=== PATIENT | male | born 1995 | race Caucasian/White ===

== ENCOUNTER 2017-05-31 17:29 | Emergency (ER) | payer OTHER ==
[2017-05-31 17:32] VITALS: BMI 26.6
[2017-05-31 17:36] VITALS: BP 126/77; PULSE 71; RESP 18; TEMP 98.3; O2SAT 96
[2017-05-31 19:01] LABS: BASO # 0.02 K/mm3 (0.0-2.0); BASO % 0.3 % (0.0-3.0); EOS # 0.2 (0.0-0.7); EOS % 2.5 % (1.5-5.0); GRAN # 2.98 (1.4-6.5); GRAN % 49.2 % (50.0-68.0); HEMOGLOBIN 13.8 g/dL (14.0-18.0); LYMPH # 2.4 (1.2-3.4); LYMPH % 40.1 % (22.0-35.0); MEAN CELL VOLUME 80.9 fl (80.0-105.0); MEAN CORPUSCULAR HEMOGLOBIN 26.8 pg (25.0-35.0); MEAN CORPUSCULAR HGB CONC 33.2 g/dl (31.0-37.0); MEAN PLATELET VOLUME 10.1 fl (7.0-11.0); MONO # 0.5 (0.1-0.6); MONO % 7.9 % (1.0-6.0); RBC 5.14 10^6/uL (3.5-6.1); RED CELL DISTRIBUTION WIDTH 14.6 % (11.5-14.5); WHITE BLOOD COUNT 6.1 10^3/ul (4.5-11.0)
[2017-05-31 19:05] LABS: ALB/GLOB RATIO 1.5 (1.1-1.8); ALBUMIN 4.4 g/dL (3.0-4.8); ALT/SGPT 62 U/L (7-56); AST/SGOT 52 U/L (17-59); BLOOD UREA NITROGEN 18 mg/dL (7-21); CALCIUM 10.1 mg/dL (8.4-10.5); GFR AFRICAN-AMERICAN > 60; GFR NON-AFRICAN AMERICAN > 60
[2017-05-31 20:08] LABS: BARBITURATES, UR NEGATIVE (NEGATIVE); BENZODIAZEPINES, UR NEGATIVE (NEGATIVE); OPIATES, UR NEGATIVE (NEGATIVE); PHENCYCLIDINE, UR NEGATIVE (NEGATIVE)
--- NOTE | 2017-05-31 20:38 | ED PDOC ---
Arrival/HPI - General Chief Complaint: Dizziness/Lightheaded Time Seen by Provider: 05/31/17 17:42 Historian: Patient - History of Present Illness Narrative History of Present Illness (Text): 05/31/17 17:53 21 year old male, with no significant past medical history, presents to the Emergency department complaining of generalized weakness, occasional headache, fatigue and "off-balance" for past several weeks. Patient additionally informs feeling cross-eyed. Patient current denies any headache, fever, chills, nausea, vomiting, diarrhea, abdominal pain, chest pain, cough, shortness of breath or any other complaints. Time/Duration: > week Symptom Onset: Gradual Symptom Course: Unchanged Activities at Onset: Light Context: Home Past Medical History - Provider Review Nursing Documentation Reviewed: Yes - Past History Past History: No Previous - Infectious Disease Hx of Infectious Diseases: None - Tetanus Immunization Tetanus Immunization: Up to Date - Psychiatric Hx Depression: No Hx Emotional Abuse: No Hx Physical Abuse: No Hx Substance Use: No - Surgical History Other/Comment: mouth surgery. spermatocele - Anesthesia Hx Anesthesia: Yes Hx Anesthesia Reactions: No Hx Malignant Hyperthermia: No - Suicidal Assessment Feels Threatened In Home Enviroment: No Family/Social History - Physician Review Nursing Documentation Reviewed: Yes Family/Social History: No Known Family HX Smoking Status: Never Smoked Hx Alcohol Use: Yes Frequency of alcohol use: Socially Hx Substance Use: No Hx Substance Use Treatment: No Allergies/Home Meds Allergies/Adverse Reactions: Allergies No Known Allergies Allergy (Verified 04/30/13 21:55) Home Medications: Home Meds Medication Instructions Recorded Confirmed No Known Home Med 05/31/17 05/31/17 Review of Systems - Physician Review All systems were reviewed & negative as marked: Yes - Review of Systems Constitutional: Fatigue. absent: Fevers Eyes: Other (feeling cross-eyed) ENT: Normal Respiratory: Normal. absent: SOB, Cough Cardiovascular: Normal. absent: Chest Pain Gastrointestinal: Normal. absent: Abdominal Pain, Diarrhea, Nausea, Vomiting Genitourinary Male: Normal Musculoskeletal: Normal Skin: Normal Neurological: Dizziness Endocrine: Normal Hemo/Lymphatic: Normal Psychiatric: Normal Physical Exam Vital Signs Reviewed: Yes Vital Signs Temp Pulse Resp BP Pulse Ox 05/31/17 17:36 98.3 F 71 18 126/77 96 Temperature: Afebrile Blood Pressure: Normal Pulse: Regular Respiratory Rate: Normal Appearance: Positive for: Well-Appearing, Non-Toxic, Comfortable Pain Distress: None Mental Status: Positive for: Alert and Oriented X 3 - Systems Exam Head: Present: Atraumatic, Normocephalic Pupils: Present: PERRL Extroacular Muscles: Present: EOMI Conjunctiva: Present: Normal Mouth: Present: Moist Mucous Membranes Neck: Present: Normal Range of Motion Respiratory/Chest: Present: Clear to Auscultation, Good Air Exchange. No: Respiratory Distress, Accessory Muscle Use Cardiovascular: Present: Regular Rate and Rhythm, Normal S1, S2. No: Murmurs Abdomen: Present: Normal Bowel Sounds. No: Tenderness, Distention, Peritoneal Signs Back: Present: Normal Inspection Upper Extremity: Present: Normal Inspection. No: Cyanosis, Edema Lower Extremity: Present: Normal Inspection. No: Edema Neurological: Present: GCS=15, CN II-XII Intact, Speech Normal Skin: Present: Warm, Dry, Normal Color. No: Rashes Psychiatric: Present: Alert, Oriented x 3, Normal Insight, Normal Concentration Medical Decision Making ED Course and Treatment: 05/31/17 17:53 Impression: 21 year old male presents to the Emergency department for generalized weakness, dizziness, and feeling cross-eyed. Plan: -- CT of Head -- EKG -- Labs -- Chest X-ray -- Urine Culture -- Urinalysis -- Reassess and disposition Progress Notes: 05/31/17 18:53 CT of head reviewed by radiologist, shows no acute findings. 05/31/17 19:12 EKG: Ordered, reviewed, and independently interpreted the EKG. Rate : 61 BPM Interpretation : RBBB. Normal axis. - Lab Interpretations Lab Results: 05/31/17 18:45 05/31/17 18:45 Lab Results 05/31/17 19:00: Urine Opiates Screen Negative, Urine Methadone Screen Negative, Ur Barbiturates Screen Negative, Ur Phencyclidine Scrn Negative, Ur Amphetamines Screen Negative, U Benzodiazepines Scrn Negative, U Oth Cocaine Metabols Negative, U Cannabinoids Screen Negative 05/31/17 18:45: TSH 3rd Generation 1.12 05/31/17 18:45: Sodium 143, Potassium 4.4, Chloride 105, Carbon Dioxide 28, Anion Gap 15, BUN 18, Creatinine 1.1, Est GFR ( Amer) > 60, Est GFR (Non- Af Amer) > 60, Random Glucose 95, Calcium 10.1, Total Bilirubin 0.5, AST 52, ALT 62 H, Alkaline Phosphatase 64, Total Protein 7.3, Albumin 4.4, Globulin 2.9 , Albumin/Globulin Ratio 1.5 05/31/17 18:45: WBC 6.1, RBC 5.14, Hgb 13.8 L, Hct 41.6 L, MCV 80.9, MCH 26.8, MCHC 33.2, RDW 14.6 H, Plt Count 213, MPV 10.1, Gran % 49.2 L, Lymph % (Auto) 40.1 H, [place] % (Auto) 7.9 H, Eos % (Auto) 2.5, Baso % (Auto) 0.3, Gran # 2.98, Lymph # (Auto) 2.4, [place] # (Auto) 0.5, Eos # (Auto) 0.2, Baso # (Auto) 0.02 - RAD Interpretation Radiology Orders: 05/31/17 18:13 CHEST PORTABLE [RAD] Stat 05/31/17 19:33 HEAD W/O CONTRAST [CT] Stat Motor Vehicle Emissions Inspector: Radiologist - EKG Interpretation Interpreted by ED Physician: Yes Type: 12 lead EKG - Scribe Statement The provider has reviewed the documentation as recorded by the Oniibnajma Munguia. All medical record entries made by the Oniibe were at my direction and personally dictated by me. I have reviewed the chart and agree that the record accurately reflects my personal performance of the history, physical exam, medical decision making, and the department course for this patient. I have also personally directed, reviewed, and agree with the discharge instructions and disposition. Disposition/Present on Arrival - Present on Arrival Any Indicators Present on Arrival: No History of DVT/PE: No History of Uncontrolled Diabetes: No Urinary Catheter: No History of Decub. Ulcer: No History Surgical Site Infection Following: None - Disposition Have Diagnosis and Disposition been Completed?: Yes Diagnosis: Weakness Disposition: HOME/ ROUTINE Disposition Time: 20:25 Condition: GOOD Discharge Instructions (ExitCare): Fatigue (DC) Additional Instructions: Thank you for letting us take care of you today. The emergency medical care you received today was directed at your acute symptoms. If you were prescribed any medication, please fill it and take as directed. It may take several days for your symptoms to resolve. Return to the Emergency Department if your symptoms worsen, do not improve, or if you have any other problems. Please contact your doctor or call one of the physicians/clinics you have been referred to that are listed on the Patient Visit Information form that is included in your discharge packet. Bring any paperwork you were given at discharge with you along with any medications you are taking to your follow up visit. Our treatment cannot replace ongoing medical care by a primary care provider (PCP) outside of the emergency department. Thank you for allowing the [facility] team to be part of your care today. Follow up with your primary doctor in 3-4 days for re-evaluation and further management. Referrals: Jason De Santiago MD [Primary Care Provider] - Follow up with primary Forms: [employer] (Bengali)
--- NOTE | 2017-06-01 09:24 | CT ---
PROCEDURE: CT HEAD WITHOUT CONTRAST. HISTORY: r/o ICH COMPARISON: None available. TECHNIQUE: Axial computed tomography images were obtained through the head/brain without intravenous contrast. Coronal and sagittal reconstructed images. Radiation dose: Total exam DLP = 1238.20 mGy-cm. This CT exam was performed using one or more of the following dose reduction techniques: Automated exposure control, adjustment of the mA and/or kV according to patient size, and/or use of iterative reconstruction technique. FINDINGS: HEMORRHAGE: No intracranial hemorrhage. BRAIN: No mass effect or edema. No atrophy or chronic microvascular ischemic changes. VENTRICLES: Unremarkable. No hydrocephalus. CALVARIUM: Unremarkable. PARANASAL SINUSES: Unremarkable as visualized. No significant inflammatory changes. MASTOID AIR CELLS: Unremarkable as visualized. No inflammatory changes. OTHER FINDINGS: None. IMPRESSION: No acute intracranial abnormalities. No significant findings to account for the clinical presentation. Concordant results (preliminary interpretation) provided by [employer]. Procedure Completed: 19:52 Preliminary (vRad) Report: Dictated and Authenticated: 20:19 Final Interpretation: 09:22 June 01, 2017.
--- NOTE | 2017-06-01 10:13 | RAD ---
HISTORY: r/o infiltrate COMPARISON: No prior. FINDINGS: LUNGS: No active pulmonary disease. PLEURA: No significant pleural effusion identified, no pneumothorax apparent. CARDIOVASCULAR: Normal. OSSEOUS STRUCTURES: No significant abnormalities. VISUALIZED UPPER ABDOMEN: Normal. OTHER FINDINGS: None. IMPRESSION: No active disease.
--- NOTE | 2017-06-01 15:51 | CARD ---
APPROVED REPORT EKG Measurement Heart [id number] <Conclusion> Normal sinus rhythm Incomplete right bundle branch block Borderline ECG
== END 2017-05-31 21:00 | disposition home or self-care (01) ==
LOC: ED 17:29
DX: R53.1 Weakness (principal)

== ENCOUNTER 2017-06-06 17:36 | Observation (INO) | payer OTHER ==
[2017-06-06] MEDS ORDERED: Sodium Chloride 0.9% 1,000 ML IV STA (18:27)
--- NOTE | 2017-06-06 18:41 | ED PDOC ---
Arrival/HPI - General Chief Complaint: GI Problem Time Seen by Provider: 06/06/17 17:45 Historian: Patient - History of Present Illness Narrative History of Present Illness (Text): 06/06/17 18:26 A 21 year old male presents to the emergency department complaining of generalized weakness and lightheadedness while driving today. Patient reports feeling drowsy and near-syncopal with associated nausea. He notes having these symptoms intermittently for approximately 1 month. Prior to todays episode patient reports feeling asymptomatic over the past 3 days. Patient also reports a secondary complaint of left upper abdominal pain radiating to lower ribs and back 1 week ago, which resolved at the time. He notes his pain returned today but only with palpation. Patient states a third complaint of bloody mucoid stool for the past 4 months since [place]. Patient also notes urinary frequency but denies any fever, chills, vomiting, chest pain, shortness of breath, headache or any other complaints. Past Medical History - Provider Review Nursing Documentation Reviewed: Yes - Past History Past History: No Previous - Infectious Disease Hx of Infectious Diseases: None - Tetanus Immunization Tetanus Immunization: Up to Date - Psychiatric Hx Substance Use: No - Surgical History Other/Comment: mouth surgery. spermatocele - Anesthesia Hx Anesthesia: Yes Hx Anesthesia Reactions: No Hx Malignant Hyperthermia: No - Suicidal Assessment Feels Threatened In Home Enviroment: No Family/Social History - Physician Review Nursing Documentation Reviewed: Yes Family/Social History: No Known Family HX Smoking Status: Never Smoked Hx Alcohol Use: Yes Frequency of alcohol use: Socially Hx Substance Use: No Hx Substance Use Treatment: No Allergies/Home Meds Allergies/Adverse Reactions: Allergies No Known Allergies Allergy (Verified 06/06/17 18:06) Home Medications: Home Meds Medication Instructions Recorded Confirmed No Known Home Med 05/31/17 06/06/17 Review of Systems - Physician Review All systems were reviewed & negative as marked: Yes - Review of Systems Constitutional: Other (Generalized weakness). absent: Fevers, Night Sweats Respiratory: absent: SOB Cardiovascular: Other (Near-syncope). absent: Chest Pain Gastrointestinal: Abdominal Pain (Left upper abdominal pain radiating to lower ribs and back), Nausea, Other (Bloody mucoid stool). absent: Vomiting Genitourinary Male: Frequency Neurological: Other (Lightheadedness). absent: Headache Physical Exam Vital Signs Reviewed: Yes Vital Signs Temp Pulse Resp BP Pulse Ox 06/06/17 18:07 98.0 F 79 18 122/68 100 Temperature: Afebrile Blood Pressure: Normal Pulse: Regular Respiratory Rate: Normal Appearance: Positive for: Well-Appearing, Non-Toxic, Comfortable Pain Distress: None Mental Status: Positive for: Alert and Oriented X 3 Finger Stick Blood Glucose: 97 - Systems Exam Head: Present: Atraumatic, Normocephalic Pupils: Present: PERRL Extroacular Muscles: Present: EOMI Conjunctiva: Present: Normal Mouth: Present: Moist Mucous Membranes Neck: Present: Normal Range of Motion Respiratory/Chest: Present: Clear to Auscultation, Good Air Exchange. No: Respiratory Distress, Accessory Muscle Use, Tender to Palpation (rib tenderness) Cardiovascular: Present: Regular Rate and Rhythm, Normal S1, S2. No: Murmurs Abdomen: Present: Tenderness (LUQ tenderness to palpation). No: Distention, Peritoneal Signs, Rebound, Guarding Rectal: Present: Normal Rectal Tone. No: Occult Blood, Rectal Tenderness, Gross Blood, Melena, Hemorrhoids, Fissures, Nodule/Mass/Lesions Back: Present: Normal Inspection. No: CVA Tenderness Upper Extremity: Present: Normal Inspection. No: Cyanosis, Edema Lower Extremity: Present: Normal Inspection. No: Edema Neurological: Present: GCS=15, CN II-XII Intact, Speech Normal Skin: Present: Warm, Dry, Normal Color. No: Rashes Psychiatric: Present: Alert, Oriented x 3, Normal Insight, Normal Concentration Medical Decision Making ED Course and Treatment: 06/06/17 18:26 Impression: A 21 year old male with weakness and near-syncope. Patient reports multiple complaints including nausea, left abdominal pain radiating to ribs and back, urinary frequency and bloody mucoid stool. Differential Diagnosis included but are not limited to: Near-syncope, Weakness, Bloody mucoid stool Plan: -- Abdomen and pelvis CT -- EKG -- Labs -- Urinalysis -- Pepcid, Zofran and IV fluids -- Reassess and disposition Progress Notes: EKG shows NSR at 68 BPM with incomplete RBBB. Interpreted by me. Case discussed with Dr. De Santiago who recommends to admit him to [facility] because they don't have a current PMD now. Patient and mom want Dr. Brown for admission. 04/05/18 18:[address] Mane who will evaluate patient on admission and agrees with plan. 06/06/17 19:[address] Alanis, pending labs and imaging results. - Lab Interpretations Lab Results: 06/06/17 18:37 Lab Results 06/06/17 18:37: WBC 8.5 D, RBC 4.12, Hgb 11.4 L D, Hct 35.2 L, MCV 85.4 D, MCH 27.7, MCHC 32.4, RDW 16.0 H, Plt Count 331, MPV 10.4, Gran % 67.1, Lymph % ( Auto) 25.8, [place] % (Auto) 5.5, Eos % (Auto) 1.2 L, Baso % (Auto) 0.4, Gran # 5.69, Lymph # (Auto) 2.2, [place] # (Auto) 0.5, Eos # (Auto) 0.1, Baso # (Auto) 0.03 06/06/17 18:05: POC Glucose (mg/dL) 97 I have reviewed the lab results: Yes - RAD Interpretation Radiology Orders: 06/06/17 18:27 ABD PELVIS PO & IV CONTRAST [CT] Stat - Medication Orders Current Medication Orders: Sodium Chloride (Sodium Chloride 0.9%) 1,000 mls @ 1,000 mls/hr IV .Q1H STA Stop: 06/06/17 19:26 Last Admin: 06/06/17 18:54 Dose: 1,000 mls/hr eMAR Start Stop Document 06/06/17 18:54 HI (Rec: 06/06/17 18:54 [id number] Intravenous Solution Start Date 06/06/17 Start Time 18:54 Discontinued Medications Famotidine (Pepcid) 20 mg IVP STAT STA Stop: 06/06/17 18:28 Last Admin: 06/06/17 18:54 Dose: 20 mg IVP Administration Document 06/06/17 18:54 HI (Rec: 06/06/17 18:54 [facility] [id number]) Charges for Administration # of IVP Administrations 1 Ondansetron HCl (Zofran Inj) 4 mg IVP STAT STA Stop: 06/06/17 18:28 Last Admin: 06/06/17 18:54 Dose: 4 mg IVP Administration Document 06/06/17 18:54 HI (Rec: 06/06/17 18:54 [facility] [id number]) Charges for Administration # of IVP Administrations 1 - Scribe Statement The provider has reviewed the documentation as recorded by the Scribe Nannette Salamanca Provider Scribe Attestation: All medical record entries made by the Scribe were at my direction and personally dictated by me. I have reviewed the chart and agree that the record accurately reflects my personal performance of the history, physical exam, medical decision making, and the department course for this patient. I have also personally directed, reviewed, and agree with the discharge instructions and disposition. Disposition/Present on Arrival - Present on Arrival Any Indicators Present on Arrival: No History of DVT/PE: No History of Uncontrolled Diabetes: No Urinary Catheter: No History of Decub. Ulcer: No History Surgical Site Infection Following: None - Disposition Have Diagnosis and Disposition been Completed?: No Diagnosis: Near syncope, Bloody stools, Abdominal pain Disposition: HOSPITALIZED Disposition Time: 18:57 Condition: FAIR Forms: [employer] ([place])
[2017-06-06 18:52] LABS: BASO # 0.03 K/mm3 (0.0-2.0); BASO % 0.4 % (0.0-3.0); EOS # 0.1 (0.0-0.7); EOS % 1.2 % (1.5-5.0); GRAN # 5.69 (1.4-6.5); GRAN % 67.1 % (50.0-68.0); HEMOGLOBIN 11.4 g/dL (14.0-18.0); LYMPH # 2.2 (1.2-3.4); LYMPH % 25.8 % (22.0-35.0); MEAN CELL VOLUME 85.4 fl (80.0-105.0); MEAN CORPUSCULAR HEMOGLOBIN 27.7 pg (25.0-35.0); MEAN CORPUSCULAR HGB CONC 32.4 g/dl (31.0-37.0); MEAN PLATELET VOLUME 10.4 fl (7.0-11.0); MONO # 0.5 (0.1-0.6); MONO % 5.5 % (1.0-6.0); RBC 4.12 10^6/uL (3.5-6.1); WHITE BLOOD COUNT 8.5 10^3/ul (4.5-11.0)
[2017-06-06 18:57] LABS: PH,URINE 6.5 (4.7-8.0); URINE BILIRUBIN NEGATIVE (NEGATIVE); URINE BLOOD NEGATIVE (NEGATIVE); URINE GLUCOSE (UA) NEGATIVE (NEGATIVE); URINE LEUKOCYTE ESTERASE NEGATIVE Leu/uL (NEGATIVE); URINE PROTEIN NEGATIVE mg/dL (<30 mg/dL); URINE UROBILINOGEN 0.2 E.U./dL (<1 E.U./dL)
[2017-06-06 19:01] LABS: URINE APPEARANCE CLEAR (CLEAR); URINE COLOR YELLOW (YELLOW)
[2017-06-06 19:02] LABS: INR 1.03 (0.93-1.08); PROTHROMBIN TIME 11.7 SECONDS (9.4-12.5)
--- NOTE | 2017-06-06 19:05 | ED PDOC ---
Physical Exam Vital Signs Reviewed: Yes Vital Signs Temp Pulse Resp BP Pulse Ox 06/07/17 01:43 62 18 112/61 99 06/06/17 23:11 68 14 129/69 98 06/06/17 21:47 69 19 123/68 99 06/06/17 19:10 65 18 113/80 100 06/06/17 18:07 98.0 F 79 18 122/68 100 Temperature: Afebrile Blood Pressure: Normal Pulse: Regular Respiratory Rate: Normal Finger Stick Blood Glucose: 97 Medical Decision Making ED Course and Treatment: 06/06/17 19:05 Case endorsed to me by Dr. Malin, pending labs and imaging results. 06/06/17 21:31: Case discussed in detail with Dr. Brown who agrees with admission. CT Abdomen and Pelvis With Intravenous Contrast EXAM DATE/TIME: 06/06/2017 6:27 PM Dictated and Authenticated by: Pierre Adhikari MD 06/07/2017 12:51 AM Eastern Time ([place] & [place]) IMPRESSION: 1. There is dilatation of a few small bowel loops within the left upper quadrant of the abdomen. Partial obstruction cannot be excluded. Within the left upper quadrant, a target sign is visualized, concerning for intussusception. 2. No acute inflammatory changes are identified involving the appendix. 3. There is a small amount of free fluid in the right pararectal region. 4. A follow-up CT is recommended as well as clinical correlation. 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 06/07/17 01:11: Case discussed with Dr. Mane of results of ct scan. states as abd soft no ttp. exam benign, no acute intervention needed. faimily requests Dr. Torres. 06/07/17 02:03: Case discussed with Dr. Torres. will see patient. pt reassesed: abd soft no ttp. - Lab Interpretations Lab Results: 06/06/17 18:37 06/06/17 18:37 Lab Results 06/06/17 18:49: Urine Color Yellow, Urine Appearance Clear, Urine pH 6.5, Ur Specific [place] 1.015, Urine Protein Negative, Urine Glucose (UA) Negative, Urine Ketones Negative, Urine Blood Negative, Urine Nitrate Negative, Urine Bilirubin Negative, Urine Urobilinogen 0.2, Ur Leukocyte Esterase Negative 06/06/17 18:37: Hepatitis A IgM Ab Negative, Hep Bs Antigen Negative, Hep B Core IgM Ab Negative, Hepatitis C Antibody Negative 06/06/17 18:37: Sodium 142, Potassium 4.6, Chloride 103, Carbon Dioxide 30, Anion Gap 13, BUN 18, Creatinine 1.1, Est GFR ( Amer) > 60, Est GFR (Non- Af Amer) > 60, Random Glucose 75, Calcium 10.5, Total Bilirubin 0.4, AST 49, ALT 60 H, Alkaline Phosphatase 55, Troponin I < 0.01, Total Protein 7.5, Albumin 4.5, Globulin 3.1, Albumin/Globulin Ratio 1.5, Lipase 106 06/06/17 18:37: PT 11.7, INR 1.03, APTT 26.0 06/06/17 18:37: WBC 8.5 D, RBC 4.12, Hgb 11.4 L D, Hct 35.2 L, MCV 85.4 D, MCH 27.7, MCHC 32.4, RDW 16.0 H, Plt Count 331, MPV 10.4, Gran % 67.1, Lymph % ( Auto) 25.8, [place] % (Auto) 5.5, Eos % (Auto) 1.2 L, Baso % (Auto) 0.4, Gran # 5.69, Lymph # (Auto) 2.2, [place] # (Auto) 0.5, Eos # (Auto) 0.1, Baso # (Auto) 0.03 06/06/17 18:05: POC Glucose (mg/dL) 97 - RAD Interpretation Radiology Orders: 06/06/17 18:27 ABD PELVIS PO & IV CONTRAST [CT] Stat - Medication Orders Current Medication Orders: Discontinued Medications Famotidine (Pepcid) 20 mg IVP STAT STA Stop: 06/06/17 18:28 Last Admin: 06/06/17 18:54 Dose: 20 mg IVP Administration Document 06/06/17 18:54 HI (Rec: 06/06/17 18:54 [id number] Charges for Administration # of IVP Administrations 1 Sodium Chloride (Sodium Chloride 0.9%) 1,000 mls @ 1,000 mls/hr IV .Q1H STA Stop: 04/05/18 19:26 Last Admin: 06/06/17 18:54 Dose: 1,000 mls/hr eMAR Start Stop Document 06/06/17 18:54 HI (Rec: 06/06/17 18:54 [id number][facility] Intravenous Solution Start Date 06/06/17 Start Time 18:54 Ondansetron HCl (Zofran Inj) 4 mg IVP STAT STA Stop: 06/06/17 18:28 Last Admin: 06/06/17 18:54 Dose: 4 mg IVP Administration Document 06/06/17 18:54 HI (Rec: 06/06/17 18:54 [facility] [id number]) Charges for Administration # of IVP Administrations 1 Disposition/Present on Arrival - Present on Arrival Any Indicators Present on Arrival: No History of DVT/PE: No History of Uncontrolled Diabetes: No Urinary Catheter: No History of Decub. Ulcer: No History Surgical Site Infection Following: None - Disposition Have Diagnosis and Disposition been Completed?: Yes Diagnosis: Near syncope, Bloody stools, Abdominal pain Disposition: HOSPITALIZED Disposition Time: 07:00 Patient Problems: Current Active Problems Problem Status Onset Abdominal pain Acute Bloody stools Acute Near syncope Acute Condition: FAIR
[2017-06-06] MEDS ORDERED: Iohexol 240 (50 ml) ONE (20:17)
[2017-06-06 20:27] LABS: ALB/GLOB RATIO 1.5 (1.1-1.8); ALBUMIN 4.5 g/dL (3.0-4.8); CALCIUM 10.5 mg/dL (8.4-10.5); GFR AFRICAN-AMERICAN > 60; GFR NON-AFRICAN AMERICAN > 60; LIPASE 106 U/L (23-300)
[2017-06-06 20:33] LABS: ALT/SGPT 60 U/L (7-56); AST/SGOT 49 U/L (17-59); BLOOD UREA NITROGEN 18 mg/dL (7-21)
[2017-06-06 20:38] LABS: TROPONIN I < 0.01 ng/mL
[2017-06-06 20:55] LABS: HEPATITIS B SURFACE AG Negative (NEGATIVE)
[2017-06-06 21:00] LABS: HEPATITIS A IGM NEGATIVE (NEGATIVE); HEPATITIS B CORE AB NEGATIVE (NEGATIVE)
[2017-06-06 21:12] LABS: HEPATITIS C ANTIBODY NEGATIVE (NEGATIVE)
[2017-06-06] MEDS ORDERED: Iohexol 350 MG/100 ML VIAL ONE (22:44)
--- NOTE | 2017-06-07 00:51 | CT ---
EXAM: CT Abdomen and Pelvis With Intravenous Contrast EXAM DATE/TIME: 06/06/2017 6:27 PM CLINICAL HISTORY: The patient age is 21 years old and is male; Pain; Abdominal pain; Additional info: Abd pain Facility exam id and description: Ct abdpelc abd pelvis po iv contrast TECHNIQUE: Axial computed tomography images of the abdomen and pelvis with intravenous contrast. All CT scans at this facility use one or more dose reduction techniques, viz.: automated exposure control; ma/kV adjustment per patient size (including targeted exams where dose is matched to indication; i.e. head); or iterative reconstruction technique. Coronal and sagittal reformatted images were created and reviewed. CONTRAST: 93 mL of OMNI 350 administered intravenously. COMPARISON: No relevant prior studies available. FINDINGS: Lung bases: No mass. No consolidation. ABDOMEN: Liver: There is a small area of hypodensity identified within the medial segment of the left lobe of the liver adjacent to the falciform ligament. This is a common location for fatty infiltration. Gallbladder and bile ducts: No calcified stones. No ductal dilation. Pancreas: Normal contour, without acute peripancreatic stranding. Spleen: No splenomegaly. Adrenals: No mass. Kidneys and ureters: No hydronephrosis. No solid mass. Stomach and bowel: There is dilatation of a few small bowel loops within the left upper quadrant of the abdomen measuring up to 2.9 cm in diameter. Partial obstruction cannot be excluded. Within the left upper quadrant on series 601 image 40, a target sign is visualized, concerning for intussusception. Multiple air-contrast levels are identified within small bowel Contrast is visualized extending into the colon. Appendix: No acute inflammatory changes are identified involving the appendix. PELVIS: Bladder: No mass. Reproductive: Unremarkable as visualized. ABDOMEN and PELVIS: Intraperitoneal space: There is a small amount of free fluid in the right pararectal region. Bones/joints: No acute fracture. Vasculature: No abdominal aortic aneurysm. Lymph nodes: No enlarged lymph nodes. IMPRESSION: 1. There is dilatation of a few small bowel loops within the left upper quadrant of the abdomen. Partial obstruction cannot be excluded. Within the left upper quadrant, a target sign is visualized, concerning for intussusception. 2. No acute inflammatory changes are identified involving the appendix. 3. There is a small amount of free fluid in the right pararectal region. 4. A follow-up CT is recommended as well as clinical correlation.
[2017-06-07 03:53] VITALS: BMI 26.4
[2017-06-07] MEDS ORDERED: Pneumococcal 23-Valent Vaccine IM ONE (03:53)
[2017-06-07] MEDS: Sodium Chloride 0.9% 1,000 ML IV SCH ×2 (05:16→22:40)
--- NOTE | 2017-06-07 07:27 | CP.PCM.CON ---
History of Present Illness - History of Present Illness History of Present Illness: Surgery: Dr. Torres CC: Bloody/mucoid stool HPI: 21M w. no significant pmh presents to ED w. wide range of complaints. He states that beginning this summer he has been having decreased energy, feels constantly fatigued, experiences occasional light headedness and an inability to concentrate. He states that these symptoms have been increasing in severity and last week he had near syncopal prompting him to come to ED. Pt also states that starting in April he began to experience bloody mucoid stool. Also since April he states that he has been experiencing Fevers/Chills, and night sweats. He states that this week he began to experience LUQ pain this week described as cramping. He denies any alleviating or aggravating factors. He denies any changes in appetite. He denies N/V. He does report some weight loss over the past week which attributes to dieting. PMH: None PSH: spermocele Meds: Multi-vitamin NKDA Social: Social ETOH, no tobacco/drugs Fhx: Father [facility] Review of Systems - Review of Systems All systems: reviewed and no additional remarkable complaints except (HPI) Past Patient History - Infectious Disease Hx of Infectious Diseases: None - Tetanus Immunizations Tetanus Immunization: Up to Date - Past Social History Smoking Status: Never Smoked - CARDIAC Hx Cardiac Disorders: No - PULMONARY Hx Respiratory Disorders: No - NEUROLOGICAL Hx Neurological Disorder: No - HEENT Hx HEENT Problems: No Other/Comment: wears glasses - RENAL Hx Chronic Kidney Disease: No - ENDOCRINE/METABOLIC Hx Endocrine Disorders: No - HEMATOLOGICAL/ONCOLOGICAL Hx Blood Disorders: No - INTEGUMENTARY Hx Dermatological Problems: No - MUSCULOSKELETAL/RHEUMATOLOGICAL Hx Musculoskeletal Disorders: No Hx Falls: No - GASTROINTESTINAL Hx Gastrointestinal Disorders: No - GENITOURINARY/GYNECOLOGICAL Hx Genitourinary Disorders: No - PSYCHIATRIC Hx Psychophysiologic Disorder: No Hx Depression: No Hx Emotional Abuse: No Hx Physical Abuse: No Hx Substance Use: Yes (has used marijuana at times in past) - SURGICAL HISTORY Hx Surgeries: Yes Other/Comment: mouth surgery on the roof of mouth as a child. spermatocele removal - ANESTHESIA Hx Anesthesia: Yes Hx Anesthesia Reactions: No Hx Malignant Hyperthermia: No Meds Allergies/Adverse Reactions: Allergies Allergy/AdvReac Type Severity Reaction Status Date / Time No Known Allergies Allergy Verified 06/06/17 18:06 - Medications Medications: Current Medications Sodium Chloride (Sodium Chloride 0.9%) 1,000 mls @ 100 mls/hr IV .Q10H [place] Last Admin: 06/07/17 05:16 Dose: 100 mls/hr Physical Exam - Constitutional Appears: Non-toxic, No Acute Distress - Head Exam Head Exam: ATRAUMATIC, NORMOCEPHALIC - Eye Exam Eye Exam: EOMI. absent: Scleral icterus - ENT Exam ENT Exam: Mucous Membranes Moist, Normal External Ear Exam - Neck Exam Neck exam: Positive for: Full Rom - Respiratory Exam Respiratory Exam: NORMAL BREATHING PATTERN. absent: Accessory Muscle Use, Respiratory Distress - GI/Abdominal Exam GI & Abdominal Exam: Soft. absent: Distended, Firm, Guarding, Rebound, Rigid, Tenderness - Rectal Exam Rectal Exam: NORMAL INSPECTION. absent: Hemorrhoids, Fecal Impaction - Extremities Exam Extremities exam: Negative for: calf tenderness, pedal edema - Neurological Exam Neurological exam: Alert, Oriented x3 - Psychiatric Exam Psychiatric exam: Normal Affect, Normal Mood - Skin Skin Exam: Dry, Normal Color, Warm Results - Vital Signs Recent Vital Signs: Last Vital Signs Temp 97.6 F 06/07/17 02:35 Pulse 57 L 06/07/17 05:30 Resp 20 06/07/17 02:35 BP 127/64 06/07/17 02:35 Pulse Ox 99 06/07/17 01:43 - Labs Result Diagrams: 06/06/17 18:37 06/06/17 18:37 - Imaging and Cardiology CT scan - abdomen Status: Image reviewed by me, Report reviewed by me Assessment & Plan - Assessment and Plan (Free Text) Assessment: 21M w. bloody mucoid stool, r/o intussception Plan: -No signs of obstruction -NPO -IVF -Serial abd exams -F/U GI recommendations -will d/w attending Zemaitis PGY3
--- NOTE | 2017-06-07 13:27 | RAD ---
HISTORY: SBO COMPARISON: No prior. FINDINGS: BOWEL: Normal. No obstruction. No free air. Oral contrast material is seen in the colon which is normal in caliber BONES: Normal. OTHER FINDINGS: None. IMPRESSION: No active disease.
--- NOTE | 2017-06-07 17:45 | CARD ---
APPROVED REPORT EKG Measurement Heart [id number] 136P [id number] <Conclusion> Normal sinus rhythm Incomplete right bundle branch block Borderline ECG
[2017-06-07] MEDS ORDERED: Lidocaine 2% Jelly (30 ml) ONE (19:25)
--- NOTE | 2017-06-08 00:18 | HP ---
DATE OF EXAM: 06/07/2017 CHIEF COMPLAINT AND HISTORY OF PRESENT ILLNESS: This is a 21-year-old male who has come into the hospital. He was complaining of severe weakness, near syncope. He states that he was having left-sided abdominal pain as well. He states that the last 2 days have been worse. He was having bloody mucoid bowel movement. He states the bowel movement did help relieve some of his symptoms. The patient was driving back from [facility] [employer] where he goes to school and was not able to drive home in the [place] area. The patient had to be picked up by his mom who states that he was feeling ill. The patient had been seen in the Emergency Room about a week ago and his initial workup was negative. The patient has no complaints of any fevers or chills. He has no nausea, no vomiting, no chest pain or shortness of breath. He has no pets at home. He has no recent travels except he had gone to [place] about a year ago. The patient has a father who has ulcerative colitis. The patient denies any arthralgias or myalgias. He does not have any aphthous ulcers. He denies having joint pains or any rashes. He has no photosensitivity. REVIEW OF SYMPTOMS: All the review of symptoms are within normal limits except that was mentioned. ALLERGIES: NO KNOWN DRUG ALLERGIES. MEDICATIONS: He takes vitamins. PAST MEDICAL HISTORY: None. SOCIAL HISTORY: He drinks socially. He denies alcohol or drugs. FAMILY HISTORY: Father had ulcerative colitis. PHYSICAL EXAMINATION: VITAL SIGNS: He has a temperature of 98.1, pulse of 64, blood pressure 111/57, respirations 20, O2 saturation 99%. Height is 5 feet 7 inches, weight is 169 pounds, BMI 26.5. GENERAL: The patient lying in bed, uncomfortable, and in no acute distress. HEENT: Atraumatic and normocephalic. Anicteric sclerae. Moist mucosa. [place] conjunctivae. No oral lesions. NECK: No JVD, anterior and posterior adenopathy, thyromegaly, or bruits. CARDIOVASCULAR: S1 and S2 regular. No murmur, rubs, or gallop. LUNGS: Clear to auscultation bilaterally. No wheezes, rales, or rhonchi. ABDOMEN: Bowel sounds are positive. Soft, nontender and nondistended. No hepatosplenomegaly. No rebound and no guarding EXTREMITIES: No cyanosis, clubbing, or edema. NEUROLOGIC: No facial asymmetry. Tongue is midline. No uvula deviation. Power is 5/5 upper extremity and lower extremity. Sensation intact in upper extremity and lower extremity. PSYCHIATRIC: She is awake, alert and oriented x3. No anxiety or depression. She has normal affect. GENITOURINARY: No CVA tenderness. VASCULAR: 2+ pulses in the carotid pulses and pedal pulses. SKIN: No erythema or nodules SPINE: Shows normal curvature. LABORATORY DATA: Labs have been reviewed. White count of 8.5, hemoglobin 11.4. He has a chemistry that shows a creatinine of 1.1. His hepatitis A, B and C has been negative. Urine shows nitrites, bilirubin, ketones have been negative. He did have a CAT scan of the abdomen that I have viewed myself. It showed that there is dilation of his small bowel, mostly in the left upper quadrant area. The report confirms this. There is partial obstruction that cannot be excluded. EKG shows sinus rhythm with a QTc of 404. Heart rate of 68. ASSESSMENT: Small bowel obstruction, possible intussusception. PLAN: The patient is going to be admitted to the hospital. He has abdominal pain. He has partial small bowel obstruction. He will be seen by GI, Cardiology and Surgery. The patient is going to be placed on IV fluids. He is NPO. The patient was given Zofran in the ER and Pepcid. He may need further evaluation for his intussusception in the differential diagnosis. The patient can have altered motility secondary to Meckel's diverticulum. He can have polyps although the majority of the causes of intussusception are unknown. He has no signs of autoimmune illness like Henoch-Schonlein purpura. I will order serology. I do not feel that this is inflammatory bowel disease. I will order NOREEN and complement, we will also add on amylase and lipase. He will have repeat blood work done tomorrow. C. difficile has been ordered. We will await for the input from the consultants. An echo has been done as well. Drew Brown MD
[2017-06-08 07:43] LABS: MEAN CELL VOLUME 81.4 fl (80.0-105.0); MEAN CORPUSCULAR HGB CONC 33.2 g/dl (31.0-37.0); MEAN PLATELET VOLUME 10.9 fl (7.0-11.0); RBC 5.26 10^6/uL (3.5-6.1); RED CELL DISTRIBUTION WIDTH 14.7 % (11.5-14.5); WHITE BLOOD COUNT 5.9 10^3/ul (4.5-11.0)
[2017-06-08 07:44] LABS: HEMOGLOBIN 14.2 g/dL (14.0-18.0)
[2017-06-08 07:48] LABS: ALB/GLOB RATIO 1.4 (1.1-1.8); ALBUMIN 3.9 g/dL (3.0-4.8); ALT/SGPT 59 U/L (7-56); AMYLASE 83 U/L (35-125); AST/SGOT 34 U/L (17-59); BLOOD UREA NITROGEN 15 mg/dL (7-21); CALCIUM 10.1 mg/dL (8.4-10.5); GFR AFRICAN-AMERICAN > 60; GFR NON-AFRICAN AMERICAN > 60; LIPASE 95 U/L (23-300)
[2017-06-08 08:01] VITALS: BP 121/84; PULSE 58; RESP 19; TEMP 97.4; O2SAT 97
[2017-06-08] MEDS: Sodium Chloride 0.9% 1,000 ML IV SCH (09:23)
--- NOTE | 2017-06-08 09:26 | CP.PCM.PN ---
Subjective - Date & Time of Evaluation Date of Evaluation: 06/08/17 Time of Evaluation: 07:30 - Subjective Subjective: General Surgery- Dr. Torres Pt seen and examined at bedside this AM. Tolerating current diet. ABD pain resolved. Passing flatus + BM. Denies fevers, chills, chest pain, shortness of breath nausea, vomiting diarrhea. Objective - Vital Signs/Intake and Output Vital Signs (last 24 hours): Temp Pulse Resp BP Pulse Ox 97.4 F L 58 L 19 121/84 97 06/08/17 08:00 06/08/17 08:00 06/08/17 08:00 06/08/17 08:00 06/08/17 08:00 Intake and Output: 06/08/17 06/08/17 06:59 18:59 Intake Total 480 Balance 480 - Medications Medications: Current Medications Sodium Chloride (Sodium Chloride 0.9%) 1,000 mls @ 100 mls/hr IV .Q10H [place] Last Admin: 06/08/17 09:23 Dose: Not Given - Labs Labs: 06/08/17 07:00 06/08/17 07:00 PT 11.7 SECONDS (9.4-12.5) 06/06/17 18:37 INR 1.03 (0.93-1.08) 06/06/17 18:37 APTT 26.0 Seconds (25.1-36.5) 06/06/17 18:37 - Constitutional Appears: Non-toxic, No Acute Distress - Head Exam Head Exam: ATRAUMATIC - Eye Exam Eye Exam: EOMI. absent: Scleral icterus - ENT Exam ENT Exam: Mucous Membranes Moist - Respiratory Exam Respiratory Exam: NORMAL BREATHING PATTERN. absent: Accessory Muscle Use, Respiratory Distress - Cardiovascular Exam Cardiovascular Exam: +S1, +S2. absent: Bradycardia, Tachycardia - GI/Abdominal Exam GI & Abdominal Exam: Soft. absent: Distended, Firm, Guarding, Rigid, Tenderness , Rebound - Extremities Exam Extremities Exam: absent: Calf Tenderness - Neurological Exam Neurological Exam: Alert, Awake, Oriented x3 - Skin Skin Exam: Intact, Warm Assessment and Plan - Assessment and Plan (Free Text) Assessment: 21 w/ abdominal pain, etiology unknown. s/p sigmoidoscopy Plan: - pt not clinically obstructed - Sigmoidoscopy was performed yesterday, biopsys were taken - f/u pathology results - plan for EGD as outpatient w/ GI - no acute surgical intervention at this time - cleared for discharge from a surgical standpoint - discussed w/ Dr. Torres surgical attending Merchant HOFFY1
--- NOTE | 2017-06-10 14:01 | CARD ---
APPROVED REPORT EXAM: Two-dimensional and M-mode echocardiogram with Doppler and color Doppler. INDICATION FATIGUE/NEAR SYNCOPE 2D DIMENSIONS Left Atrium (2D)3.5 (1.6-4.0cm)IVSd1.1 (0.7-1.1cm) LVDd4.6 (3.9-5.9cm)PWd1.0 (0.7-1.1cm) LVDs3.0 (2.5-4.0cm)FS (%) 33.9 % LVEF (%)62.8 (>50%) M-Mode DIMENSIONS Aortic Root2.70 (2.2-3.7cm)Aortic Cusp Exc.1.90 (1.5-2.0cm) Aortic Valve AoV Peak Yveycmbx788.0cm/[place] Peak GR.10mmHg Mitral Valve E/A ratio0.0 TDI E/Lateral E'0.0E/Medial E'0.0 Tricuspid Valve TR Peak [id number]/sRAP [id number] Peak Gr.18mmHg [id number] LEFT VENTRICLE The left ventricular function is normal. The left ventricular ejection fraction is within the normal range. RIGHT VENTRICLE The right ventricle is normal size. ATRIA The left atrium size is normal. The right atrium size is normal. AORTIC VALVE The aortic valve is normal in structure. MITRAL VALVE The mitral valve is normal in structure. chordea detached or redundant off anterior leaflet TRICUSPID VALVE The tricuspid valve is normal in structure. PULMONIC VALVE The pulmonary valve is normal in structure. PERICARDIAL EFFUSION There is no pericardial effusion. <Conclusion> Good LV function No pulmonary hypertension Probable redundant chordae off anterior leaflet of MV Trace to mild MR
--- NOTE | 2017-06-11 06:50 | DS ---
DISCHARGE DIAGNOSES: 1. Partial small bowel obstruction. 2. Abdominal pain. HOSPITAL COURSE: Patient was admitted with abdominal pain, partial small bowel obstruction. CAT scan of the abdomen and pelvis done during hospitalization showed dilated small bowel loops. He underwent colonoscopy by Dr. Mane, internal hemorrhoids were found and multiple biopsies were taken of the colon to rule out ulcerative colitis. Evaluated by Surgery, Dr. Torres. Improved with conservative treatment. Being discharged home in stable condition. PHYSICAL EXAMINATION ON DISCHARGE: GENERAL: Comfortable in bed, in no acute distress. VITAL SIGNS: Temperature 98.7, heart rate 80 per minute, blood pressure 120/70, respiratory rate 18 per minute, oxygen saturation 98% on room air. HEENT: Normal. CHEST: Air entry present and equal bilaterally. No added sounds. CARDIOVASCULAR: S1 and S2 normal. No murmur. No gallop. ABDOMEN: Soft, nontender. No hepatosplenomegaly. EXTREMITIES: No edema. CENTRAL NERVOUS SYSTEM: Alert and oriented x3. No focal, sensory or motor deficit. CONDITION ON DISCHARGE: Stable. DISPOSITION: Discharged home. Resume home medications, . Follow up with Dr. Mane for outpatient EGD. Follow up with the PCP. Discussed with the staff nurse. Discussed with Dr. Mane. DIET: Regular diet. Time spent preparing discharge and coordinating care, 50 minutes. Juhi Apodaca MD
[2017-06-12 11:35] LABS: ANCA SCREEN NEGATIVE (NEGATIVE)
== END 2017-06-08 12:59 | disposition home or self-care (01) ==
LOC: ED 17:36 → OBSVTOIN 06-07 00:31 → ERH 06-07 00:31 → INTOOBSV 06-07 00:31 → ERH 06-07 00:55 → 3RNO 06-07 02:14 → INTOOBSV 06-07 08:57 → OBSVTOIN 06-07 08:57
PROVIDERS: ADMIT Internal Medicine Nephrology; ATTEND Internal Medicine Nephrology
DX: K56.600 Partial intestinal obstruction, unspecified as to cause (principal); K64.8 Other hemorrhoids
CPT/HCPCS: 36415; 45380; 74018; 74177; 80053; 80074; 81003; 82150; 82948; 83615; 83690; 84484; 85025; 85027; 85610; 85651; 85730; 86021; 86039; 87045; 87324; 88305; 93005; 93306; 96374; 96375; 99285; G0378; J2405; J7040; Q9966; Q9967

== ENCOUNTER 2018-07-11 19:51 | Emergency (ER) | payer OTHER ==
[2018-07-11 19:57] VITALS: BMI 25.8
[2018-07-11] MEDS ORDERED: Sodium Chloride 0.9% 1,000 ML IV STA (20:12)
[2018-07-11 20:32] LABS: BASO # 0.01 K/mm3 (0.0-2.0); BASO % 0.2 % (0.0-3.0); EOS # 0.2 (0.0-0.7); EOS % 3.4 % (1.5-5.0); LYMPH # 2.1 (1.2-3.4); LYMPH % 47.9 % (22.0-35.0); MEAN CELL VOLUME 82.3 fl (80.0-105.0); MEAN CORPUSCULAR HEMOGLOBIN 26.9 pg (25.0-35.0); MEAN CORPUSCULAR HGB CONC 32.6 g/dl (31.0-37.0); MEAN PLATELET VOLUME 10.9 fl (7.0-11.0); MONO # 0.4 (0.1-0.6); RBC 5.21 10^6/uL (3.5-6.1); RED CELL DISTRIBUTION WIDTH 14.1 % (11.5-14.5); WHITE BLOOD COUNT 4.4 10^3/uL (4.5-11.0)
[2018-07-11 20:36] LABS: PROTHROMBIN TIME 11.1 SECONDS (9.4-12.5)
[2018-07-11 20:39] LABS: ALB/GLOB RATIO 1.5 (1.1-1.8); ALBUMIN 4.2 g/dL (3.0-4.8); ALT/SGPT 29 U/L (7-56); AST/SGOT 29 U/L (17-59); BLOOD UREA NITROGEN 11 mg/dL (7-21); CALCIUM 9.1 mg/dL (8.4-10.5); GFR NON-AFRICAN AMERICAN > 60
--- NOTE | 2018-07-11 20:41 | ED PDOC ---
Arrival/HPI - General Chief Complaint: Chest Pain Time Seen by Provider: 07/11/18 19:52 Historian: Patient - History of Present Illness Narrative History of Present Illness (Text): 22 y/o male with PMH of anxiety and GERD presents to the ED c/o left sided chest pain x 1 day that worsened over the last few hours. Pain is a squeezing pressure that radiates up into his jaw and down the left arm. Pain is not exacerbated by movement or eating. Associated lightheadedness. Pt sees Dr. De Santiago, emergency registrar, and has had normal echocardiograms and stress tests in the past. Pt has experienced pain like this multiple times in the past, and it has resolved on its own without intervention. Denies fever, chills, cough, congestion, SOB, nu mbness, weakness, paresthesias, back pain, or any other associated symptoms. Past Medical History - Provider Review Nursing Documentation Reviewed: Yes - Past History Past History: No Previous - Infectious Disease Hx of Infectious Diseases: None - Tetanus Immunization Tetanus Immunization: Up to Date - Cardiac Hx Cardiac Disorders: No - Pulmonary Hx Respiratory Disorders: No - Neurological Hx Neurological Disorder: No - HEENT Hx HEENT Disorder: No Other/Comment: wears glasses - Renal Hx Renal Disorder: No - Endocrine/Metabolic Hx Endocrine Disorders: No - Hematological/Oncological Hx Blood Disorders: No - Integumentary Hx Dermatological Disorder: No - Musculoskeletal/Rheumatological Hx Musculoskeletal Disorders: No Hx Falls: No - Gastrointestinal Hx Gastrointestinal Disorders: No - Genitourinary/Gynecological Hx Genitourinary Disorders: No - Psychiatric Hx Psychophysiologic Disorder: No Hx Depression: No Hx Emotional Abuse: No Hx Physical Abuse: No Hx Substance Use: Yes (has used marijuana at times in past) - Surgical History Other/Comment: mouth surgery on the roof of mouth as a child. spermatocele removal - Anesthesia Hx Anesthesia Reactions: Yes (GETS NERVOUS) Hx Malignant Hyperthermia: No - Suicidal Assessment Feels Threatened In Home Enviroment: No Family/Social History - Physician Review Nursing Documentation Reviewed: Yes Family/Social History: No Known Family HX Smoking Status: Never Smoked Hx Alcohol Use: Yes (states just monthly) Hx Substance Use: Yes (has used marijuana at times in past) Hx Substance Use Treatment: No Allergies/Home Meds Allergies/Adverse Reactions: Allergies No Known Allergies Allergy (Verified 07/11/18 19:57) Home Medications: Home Meds Medication Instructions Recorded Confirmed No Known Home Med 05/31/17 07/11/18 Review of Systems - Review of Systems Constitutional: Normal. absent: Fevers Eyes: Normal. absent: Vision Changes ENT: Normal. absent: Sore Throat, Sinus Congestion Respiratory: Normal. absent: SOB, Cough Cardiovascular: Chest Pain Gastrointestinal: Normal. absent: Abdominal Pain, Nausea, Vomiting Genitourinary Male: Normal. absent: Dysuria, Frequency Musculoskeletal: Normal. absent: Back Pain, Neck Pain Skin: Normal. absent: Rash Neurological: Dizziness. absent: Headache, Focal Weakness Physical Exam Vital Signs Reviewed: Yes Vital Signs Temp Pulse Resp BP Pulse Ox 07/11/18 20:00 97.9 F 71 18 141/73 100 Temperature: Afebrile Blood Pressure: Normal Pulse: Regular Respiratory Rate: Normal Appearance: Positive for: Well-Appearing, Non-Toxic, Comfortable Pain Distress: None Mental Status: Positive for: Alert and Oriented X 3 - Systems Exam Head: Present: Atraumatic, Normocephalic Pupils: Present: PERRL Extroacular Muscles: Present: EOMI Conjunctiva: Present: Normal Mouth: Present: Moist Mucous Membranes Neck: Present: Normal Range of Motion. No: Meningeal Signs Respiratory/Chest: Present: Clear to Auscultation, Good Air Exchange. No: Respiratory Distress, Accessory Muscle Use, Tender to Palpation Cardiovascular: Present: Regular Rate and Rhythm, Normal S1, S2, Peripheal Pulses Present Abdomen: Present: Normal Bowel Sounds. No: Tenderness, Distention, Peritoneal Signs, Rebound, Guarding Back: Present: Normal Inspection. No: CVA Tenderness Upper Extremity: Present: Normal Inspection, Normal ROM, NORMAL PULSES, Neurovascularly Intact, Capillary Refill < 2s. No: Cyanosis, Edema, Temperature Abnormalties Lower Extremity: Present: Normal Inspection, NORMAL PULSES, Normal ROM, Neurovascularly Intact, Capillary Refill < 2 s. No: Edema, Temperature Abnormalties Neurological: Present: GCS=15, CN II-XII Intact, Speech Normal, Motor Func Grossly Intact, Normal Sensory Function, Normal Cerebellar Funct, Gait Normal Skin: Present: Warm, Dry, Normal Color. No: Rashes Psychiatric: Present: Alert, Oriented x 3, Normal Insight, Normal Concentration, Normal Affect, Normal Mood Medical Decision Making ED Course and Treatment: Initial Plan: * Labs * UA, UDS * EKG * CXR * IVF * ASA * Pepcid * GI Cocktail EKG shows rate of 68 without acute ischemic change 20:45 Bloodwork reviewed, unremarkable. Troponin negative. CXR shows no active disease as read by me 21:30 Patient continues with lightheadedness and chest pain. Offered admission for observation for cardiology evaluation and trending of cardiac enzymes. Patient states he would rather go home. Advised followup with PMD tomorrow and cardiolog y within 2 days. 21:45 The patient is choosing to leave against medical advice. I have personally explained to the patient that choosing to do so may result in permanent bodily harm, disability, or . I have discussed at great length that without further evaluation and monitoring there may be unforeseen circumstances and/or deterioration causing permanent bodily harm or as a result of their choice. The patient is alert, oriented, and shows the mental capacity to make clear decisions regarding the patients health care at this time. The patient continues to wish to leave against medical advice. In light of the patients decision to leave against medical advice, follow-up has been arranged and the patient is aware of the importance to following up as instructed. The patient has been advised that they should return to the emergency room immediately if they change their mind at any time, or if their condition begins to change or worsen in any way. - Lab Interpretations Lab Results: 07/11/18 20:20 07/11/18 20:20 Lab Results 07/11/18 20:20: PT 11.1, INR 1.00, APTT 28.0, D-Dimer, Quantitative < 200 07/11/18 20:20: Sodium 140, Potassium 4.1, Chloride 103, Carbon Dioxide 33, Anion Gap 8 L, BUN 11, Creatinine 1.1, Est GFR ( Amer) > 60, Est GFR (Non-Af Amer) > 60, Random Glucose 92, Calcium 9.1, Magnesium 2.0, Total Bilirubin 0.3, AST 29, ALT 29, Alkaline Phosphatase 59, Lactate Dehydrogenase 356, Total Creatine Kinase 94, Troponin I < 0.01, Total Protein 6.9, Albumin 4.2, Globulin 2.7, Albumin/Globulin Ratio 1.5 07/11/18 20:20: WBC 4.4 L, RBC 5.21, Hgb 14.0, Hct 42.9, MCV 82.3, MCH 26.9, MCHC 32.6, RDW 14.1, Plt Count 170, MPV 10.9, Neut % (Auto) 40.5 L, Lymph % (Auto) 47.9 H, [place] % (Auto) 8.0 H, Eos % (Auto) 3.4, Baso % (Auto) 0.2, Lymph # (Auto) 2.1, [place] # (Auto) 0.4, Eos # (Auto) 0.2, Baso # (Auto) 0.01, Absolute Neuts (auto) 1.77 I have reviewed the lab results: Yes - RAD Interpretation Radiology Orders: 07/11/18 20:11 CHEST PORTABLE [RAD] Stat - Medication Orders Current Medication Orders: Aspirin (Aspirin) 325 mg PO STAT STA Stop: 07/11/18 20:25 Sodium Chloride (Sodium Chloride 0.9%) 1,000 mls @ 999 mls/hr IV .Q1H1M STA Stop: 07/11/18 21:12 Last Admin: 07/11/18 20:20 Dose: 999 mls/hr eMAR Start Stop Document 07/11/18 20:20 IT (Rec: 07/11/18 20:20 IT [id number]) Intravenous Solution Start Date 07/11/18 Start Time 20:20 Disposition/Present on Arrival - Present on Arrival Any Indicators Present on Arrival: No History of DVT/PE: No History of Uncontrolled Diabetes: No Urinary Catheter: No History of Decub. Ulcer: No History Surgical Site Infection Following: None - Disposition Have Diagnosis and Disposition been Completed?: Yes Diagnosis: Chest pain, Left against medical advice Disposition: AGAINST MEDICAL ADVICE Disposition Time: 21:45 Condition: GUARDED Discharge Instructions (ExitCare): Leaving Against Medical Advice, Chest Pain (ED) Additional Instructions: Followup with primary doctor and emergency registrar tomorrow Increase fluids Return to ER with any new/worsening symptoms or if you wish to be re-evaluated Referrals: Sree STALLWORTH,Lucas Schroeder MD [Staff Provider] - Follow up with primary Jason De Santiago MD [Primary Care Provider] - Follow up with primary Forms: [employer] ([employer])
[2018-07-11 20:43] LABS: D DIMER < 200 ng/mlDDU (0-243)
[2018-07-11 20:50] LABS: TROPONIN I < 0.01 ng/mL
[2018-07-11] MEDS ORDERED: Atrop/Hyosc/Scopal/PB Elixir (120 ml) PO STA (20:53)
[2018-07-11] MEDS ORDERED: Alum-Mag Hydrox-Simethicone Susp (30 mL) PO STA (20:53)
[2018-07-11 22:15] VITALS: BP 138/68; PULSE 68; RESP 17; TEMP 98.2; O2SAT 98
--- NOTE | 2018-07-12 09:21 | CARD ---
APPROVED REPORT Date of service: 07/11/2018 EKG Measurement Heart [id number] <Conclusion> Normal sinus rhythm with sinus arrhythmia Normal ECG
--- NOTE | 2018-07-12 11:02 | RAD ---
Date of service: 07/11/2018 HISTORY: chest pain COMPARISON: 05/31/2017. FINDINGS: LUNGS: The lungs are well inflated and clear. PLEURA: No pleural effusions or pneumothorax. CARDIOVASCULAR: The heart is normal in size. No aortic atherosclerotic calcifications present. OSSEOUS STRUCTURES: Within normal limits for the patient's age. VISUALIZED UPPER ABDOMEN: Normal. OTHER FINDINGS: None. IMPRESSION: No active pulmonary disease.
== END 2018-07-11 22:18 | disposition left against medical advice (07) ==
LOC: ED 19:51
DX: R07.9 Chest pain, unspecified (principal); K21.9 Gastro-esophageal reflux disease without esophagitis; F41.9 Anxiety disorder, unspecified
CPT/HCPCS: 71045; 80053; 82550; 83615; 83735; 84484; 85025; 85378; 85610; 85730; 93005; 96374; 99284; J7030